=== PATIENT | male | born 1955 | race Caucasian/White ===

== ENCOUNTER 2022-02-23 05:06 | Inpatient (IN) ==
[2022-02-23] MEDS ORDERED: 0.9 % Sodium Chloride 2,000 ML ONE (05:26)
[2022-02-23] MEDS ORDERED: Iopamidol - 370 200 ML INFUS..BTL ONE (05:27)
[2022-02-23] MEDS ORDERED: Heparin 1,000 UNITS/500 mL 500 ML ONE (05:27)
[2022-02-23] MEDS ORDERED: Nitroglycerin 1,000 MCG/5 ML VIAL IV ONE (05:27)
[2022-02-23] MEDS ORDERED: *HR* Heparin 10,000 UNIT/10 ML VIAL ONE ×2 (05:27→06:07)
[2022-02-23] MEDS ORDERED: *HR* FentaNYL (PF) 100 MCG/2 ML VIAL ONE (06:07)
[2022-02-23] MEDS ORDERED: *HR* Midazolam HCl 2 MG/2 ML VIAL ONE (06:07)
[2022-02-23] MEDS ORDERED: Morphine Sulfate 2 MG/ML SYRINGE IVP PRN (08:37)
[2022-02-23] MEDS ORDERED: Naloxone 0.4 MG/ML INJ IVP PRN (08:37)
[2022-02-23] MEDS ORDERED: *HR* LORazepam 2 MG/ML VIAL IVP PRN (08:37)
[2022-02-23] MEDS ORDERED: Ipratropium/Albuterol Neb 3 ML IH PRN (08:39)
[2022-02-23] MEDS ORDERED: Glycopyrrolate 0.2 MG/ML VIAL IVP ONE (09:54)
[2022-02-23] MEDS ORDERED: Morphine Sulfate Oral CONC 10 MG/0.5 ML ORAL.SYG SL PRN (12:49)
[2022-02-23] MEDS ORDERED: Atropine Sulfate 1% 40 DROP/2 ML BOTTLE SL PRN (12:51)
[2022-02-23] MEDS ORDERED: Saliva Stimulant 44.3ml BOTTLE PO PRN (12:52)
[2022-02-24 02:00] VITALS: O2SAT 95
[2022-02-24 08:55] VITALS: BP 92/57; PULSE 96; TEMP 98.7
== END 2022-02-24 18:56 | disposition hospice, inpatient (51) | DRG 280 ==
LOC: ICNU 07:45 → 2ANU 14:21
PROVIDERS: ADMIT Internal Medicine Interventional Cardiology; ATTEND Internal Medicine Interventional Cardiology